=== PATIENT | female | born 1975 | race Caucasian/White ===

== ENCOUNTER → 2024-06-17 06:16 | Day surgery (SDC) | payer OTHER, SELFPAY ==
[2024-06-17 07:18] LABS: Glucose - Point of Care 210 mg/dl (70-99)
== END ==
LOC: GI 06:16
PROVIDERS: ATTENDING PHYSICIAN Internal Medicine Gastroenterology
DX: Z12.11 Encounter for screening for malignant neoplasm of colon (principal); K64.4 Residual hemorrhoidal skin tags
CPT/HCPCS: G0121; 82962